=== PATIENT | female | born 1960 | race Two or more races ===

== ENCOUNTER 2018-08-02 13:20 | Emergency (ER) | payer OTHER ==
--- NOTE | 2018-08-02 14:33 | EDM.PDOC ---
ED HPI GENERAL MEDICAL PROBLEM - General Chief Complaint: Chest Pain Stated Complaint: CHEST AND LT ARM PAIN Time Seen by Provider: 08/02/18 13:40 Source of Information: Reports: Patient, Family (), RN Notes Reviewed History Limitations: Reports: Language Barrier (Used diplomatic interpreter/translator via iPad) - History of Present Illness INITIAL COMMENTS - FREE TEXT/NARRATIVE: Through a diplomatic interpreter/translator, the patient states that she has had left neck, left scapular, left upper chest, left shoulder, and left upper extremity pain, tingling, and numbness on and off for the past 3 years. She says it feels like the pain is in her arm, radiating upward area she states that she is sometimes unable to sleep due to the pain. She states that sometimes the pain is so bad, that she is short of breath. Her pain is also made worse if she lifts or carries things. She states that Tylenol has given her no help. The patient states that she has been seen by 3 or 4 doctors in the past, given medications, but that the pain is still there. The patient and her reside in [place], but come here for work. She states that her PCP is in [place], and that she saw her PCP about one week ago. She states that her PCP commended an ultrasound of her shoulder, and referred the patient to a shoulder surgeon. The patient did not follow up on either of those recommendations. Review of prior medical records finds that the patient was seen in this ED for the same complaint on 05/26/2018. The patient was given a presumptive diagnosis of cervical radiculopathy, and referred to the clinic for follow-up, to include a MRI. The patient never did. Left Chest Pain Score (Numeric/FACES): 10 - Related Data Allergies Allergy/AdvReac Type Severity Reaction Status Date / Time No Known Allergies Allergy Verified 08/02/18 13:38 Home Meds: Home Meds Benzonatate [Tessalon Perle] 100 mg PO TID PRN #15 capsule 05/26/18 [Rx] Clotrimazole/Betamethasone Dip [Lotrisone Cream] 1 applic TOP ASDIRECTED [History] Naproxen 500 mg PO BID #20 tablet. 05/26/18 [Rx] Orphenadrine [Norflex] 100 mg PO BID PRN #20 tab 05/26/18 [Rx] Telmisartan [Micardis] 80 mg PO DAILY 05/26/18 [History] amLODIPine [Norvasc] 5 mg PO DAILY #10 tablet 05/26/18 [Rx] hydrOXYzine HCl [hydrOXYzine] 10 mg PO Q6H PRN 05/26/18 [History] Past Medical History Cardiovascular History: Reports: Hypertension Endocrine/Metabolic History: Reports: Obesity/BMI 30+ - Past Surgical History Female Surgical History: Reports: Section (x 3) Endocrine Surgical History: Reports: Thyroid Biopsy (Benign tumor excision) Social & Family History - Tobacco Use Smoking Status *Q: Never Smoker Second Hand Smoke Exposure: No - Caffeine Use Caffeine Use: Reports: Coffee - Alcohol Use Alcohol Use History: No - Recreational Drug Use Recreational Drug Use: No - Living Situation & Occupation Living situation: Reports: , with Spouse, with Family (Grandson (in [place] )) Occupation: Employed (Construction) ED ROS GENERAL - Review of Systems Review Of Systems: ROS reveals no pertinent complaints other than HPI. ED EXAM, GENERAL - Physical Exam Exam: See Below Exam Limited By: No Limitations General Appearance: Alert, WD/WN, No Apparent Distress Eye Exam: Bilateral Eye: EOMI, Normal Inspection Ears: Normal External Exam, Hearing Grossly Normal Nose: Normal Inspection Throat/Mouth: Normal Inspection, Normal Lips, Normal Voice, No Airway Compromise Head: Atraumatic, Normocephalic Neck: Normal Inspection, Supple, Full Range of Motion, Tender Midline (mild), Other (The patient's left neck, left shoulder, left scapular, and left upper extremity pain are worsened with neck extension, and turning her head to the left. Pain is also increased with cervical compression.) Respiratory/Chest: No Respiratory Distress, Lungs Clear, Normal Breath Sounds, No Accessory Muscle Use, Chest Non-Tender Cardiovascular: Normal Peripheral Pulses, Regular Rate, Rhythm, No Gallop, No JVD, No Murmur, No Rub Peripheral Pulses: 4+: Radial (L), Radial (R) GI/Abdominal: Normal Bowel Sounds, Soft, Non-Tender, No Organomegaly, No Distention, No Abnormal Bruit, No Mass, Other (Obese) (Female) Exam: Deferred Rectal (Female) Exam: Deferred Back Exam: Normal Inspection, Full Range of Motion, NT Extremities: Normal Inspection, Normal Range of Motion, Non-Tender, No Pedal Edema, Normal Capillary Refill Neurological: Alert, Oriented, Normal Cognition, No Motor/Sensory Deficits Psychiatric: Normal Affect Skin Exam: Warm, Dry, Intact, Normal Color, No Rash Course - Vital Signs Last Recorded V/S: Last Vital Signs Temp 36.6 C 08/02/18 13:27 Pulse 75 08/02/18 13:27 Resp 16 08/02/18 13:27 BP 150/108 H 08/02/18 13:27 Pulse Ox 95 08/02/18 13:27 - Orders/Labs/Meds Orders: Active Orders 24 hr Category Date Time Status EKG 12 Lead [EKG Documentation Completion] [RC] STAT Care 08/02/18 13:43 Active - Re-Assessments/Exams Free Text/Narrative Re-Assessment/Exam: 08/02/18 14:27 By both history and physical examination, the patient is suffering from left cervical radiculopathy. I am recommending a MRI. This will need to be ordered by either her PCP back in [place], or I could refer her to a PCP here. She preferred referral here. I will therefore refer her to Dr. Duran, who can order the appropriate MRI, and, based on the MRI results, determine if surgery is an appropriate option. In the meantime, I'm recommending that the patient continue her meloxicam. I explained that meloxicam may help with her symptoms, but is not curative. Departure - Departure Time of Disposition: 14:28 Disposition: Home, Self-Care 01 Condition: Good Clinical Impression: Left cervical radiculopathy - Discharge Information *PRESCRIPTION DRUG MONITORING PROGRAM REVIEWED*: Not Applicable *COPY OF PRESCRIPTION DRUG MONITORING REPORT IN PATIENT BEATRICE: Not Applicable Instructions: Cervical Radiculopathy, [id number] Referrals: PCP,Not In Area [Primary Care Provider] - Johana Duran MD [Physician] - Forms: ED Department Discharge Additional Instructions: You were seen in the emergency room for 3 years of intermittent left neck, left shoulder, left upper chest, left shoulder blade, and left arm pain, tingling, and numbness. Based on your history and physical examination, you are suffering from left cervical radiculopathy, a condition where the nerves in your neck are irritated , due to either a herniated intervertebral disc, or arthritis of the neck. In order to confirm the diagnosis, you need to have a MRI of your neck. Please follow-up with Dr. Johana Duran, or one of the other providers in the clinic, to arrange for a MRI of your neck. In the meantime, continue to take the meloxicam that was previously prescribed to you. If any other problems, please do not hesitate to return to the ER. - My Orders Last 24 Hours: My Active Orders 08/02/18 13:43 EKG 12 Lead [EKG Documentation Completion] [RC] STAT - Assessment/Plan Last 24 Hours: My Active Orders 08/02/18 13:43 EKG 12 Lead [EKG Documentation Completion] [RC] STAT
== END 2018-08-02 14:47 | disposition home or self-care (01) ==
LOC: JD.ED 13:20
DX: M54.12 Radiculopathy, cervical region (principal); I10 Essential (primary) hypertension; Z79.899 Other long term (current) drug therapy
CPT/HCPCS: 93005; 93010; 99282; 99284-25